=== PATIENT | female | born 1970 | race Caucasian/White ===

== ENCOUNTER → 2018-07-14 | Outpatient (CLI) | payer OTHER ==
[~2018-07-14] MED LIST: ACETAMINOPHEN325 M1; BENADRYL25 MG; BENTYL20 MG; CARAFATE 1 GM TA1 GM PO; FLAGYL500 MG; FLUZONE 2045 MCG/011; HYDROCODONE-AP1 EAC6; IBUPROFEN 800800 M1; MOTION RELIEF25 MG PO; NOHOMEMEDICATIONS; PEPCID20 MG PO; PNEUMOVAX25 MCG/0.5
--- NOTE | 2018-07-18 09:07 | PATH ---
[address] [address] PATHOLOGY RPT PROCEDURE Name: VANITA ARTHUR Room: [facility]..#: [id number] Admission: 07/14/18 Date of : 70 Discharge: Report #: [id number] Path Case #: [id number] Note [facility] Accession Number: [id number] TESTS RESULT FLAG UNITS REF RANGE LAB Clinician Provided Cytology Information No. of containers..01 Other (Miscellaneous) Source: RT THYROID DIAGNOSIS: 02 RT THYROID NODULE SUP BETHESDA CATEGORY II CONSISTENT WITH BENIGN FOLLICULAR NODULE THIS INTERPRETATION INCLUDES EVALUATION OF A CELL BLOCK. Pathologist ICD10: 02 R89.6 Signed out by: 02 Anoop Fenton MD, Pathologist NPI- [id number] Performed by: 01 Brock Hunt, Manhole Builder ([facility]) Gross description: 01 25ML, RED, CLOUDY /LCS FLAG LEGEND: L-Low Normal,H-High Normal,LL-Alert Low,HH-Alert High <-Panic Low,>-Panic High,A-Abnormal,AA-Critical Abnormal Performed at: [address] [place] [address] Navjot Kuhn MD, [address] [place] [address] [facility], [place] [address] Anoop Fenton MD, Specimen Comment: A courtesy copy of this report has been sent to Specimen Comment: [phone]. Specimen Comment: Report sent to Performed at: [address], [place], [place] [id number] MD Navjot Kuhn MD Phone: [phone]
== END | disposition home or self-care (01) ==
LOC: M.ULTRA 07:57
DX: E04.1 Nontoxic single thyroid nodule (principal); R89.6 Abnormal cytological findings in specimens from other organs, systems and tissues; H81.10 Benign paroxysmal vertigo, unspecified ear; Z88.0 Allergy status to penicillin; Z88.8 Allergy status to other drugs, medicaments and biological substances; Z79.891 Long term (current) use of opiate analgesic